=== PATIENT | female | born 1950 | race Two or more races ===

== ENCOUNTER 2019-02-11 10:34 | Emergency (ER) | payer MEDICARE ==
[~2019-02-11] VITALS: Ht 172.7 cm; Wt 72.6 kg
[2019-02-11] MEDS ORDERED: PROMETHAZINE HC25 MG PR (13:34)
[2019-02-11] MEDS ORDERED: PROMETHAZINE HC25 M1 PO (13:34)
== END 2019-02-11 14:32 | disposition home or self-care (01) ==
LOC: ED 10:34
DX: E86.0 Dehydration (principal); R11.10 Vomiting, unspecified
CPT/HCPCS: 80048; 80053; 81001; 83690; 85025; 96361; 96374; 99284-25; J2765; J7030